=== PATIENT | male | born 1960 | race Caucasian/White ===

== ENCOUNTER 2016-09-26 12:11 | Outpatient (CLI) | payer OTHER ==
[~2016-09-26] VITALS: Ht 172.7 cm; Wt 112.7 kg
[2016-09-26 12:00] VITALS: BP 168/93; PULSE 62; RESP 18; Ht 172.7 cm; Wt 112.7 kg
[2016-09-26] MEDS ORDERED: DILT240T8 PO (12:22)
[2016-09-26] MEDS ORDERED: ISOS60TA PO (12:22)
[2016-09-26] MEDS ORDERED: APR50 PO (12:22)
[2016-09-26] MEDS ORDERED: FENO160T13 PO (12:22)
[2016-09-26] MEDS ORDERED: CHOL400T10 PO (12:22)
[2016-09-26] MEDS ORDERED: LISI20TA11 PO (12:22)
[2016-09-26] MEDS ORDERED: ASPI-664 PO (12:22)
[2016-09-26] MEDS ORDERED: METO100T13 PO (12:22)
[2016-09-26] MEDS ORDERED: METO50TA16 PO (12:22)
[2016-09-26] MEDS ORDERED: AMLO-147 PO (12:22)
--- NOTE | 2016-09-26 12:32 | PN ---
Date/Time of Note Date/Time of Note DATE: 09/26/16 TIME: 11:57 Outpatient Progress Note Chief Complaint Hypertension/ASHD/hyperlipidemia/ HPI Hypertension/patient's elevated blood pressure, no headache or dizziness, patient blood pressure this morning 168/93, patient was recently hospitalized with high blood pressure, and chest pain, no impaired vision, no nausea vomiting , no local focal weakness, no blood in the urine, ASHD/no chest pain, no PND orthopnea or ankle edema, patient was recently hospital is, patient does have history of PTCA stent LAD 10/04/2015 with [facility] Hyperlipidemia/no xanthoma, on medication, side effect of medication, Review of Systems Const: [No Fever, no chills, no Wt. loss, no Fatigue, normal appetite, no diaphoresis.] Eyes: [No pain, no discharge, no redness, no visual change, no foreign body.] ENT: [No pain, no bleeding, no congestion, no sore throat, no dysphagia, no discharge or rhinitis.] Lymph: [No adenopathy, no tender nodes, no lymphedema.] Resp: [No SOB, no cough, no sputum, no wheezing, no chest pain.] CV: [No chest pain, no palpitaions, no HAAS, no PND, no edema.] GI: [Normal appetite, no pain, no nausea, no vomiting, no diarrhea, no blood, no constipation.] : [No frequency, no urgency, no dysuria, no hematuria, no flank pain, no discharge, no bleeding.] Musc: [No bone/joint pain, no back pain, no neck pain, no knee pain, no restricted ROM.] Skin: [No rash, no skin lesions, no erythema, no laceration, no bruising, no pruritus.] Neuro: [No HERNANDES, no dizziness, no syncope, no seizure, no focal-weakness.] Endo: [No polyuria, no polydypsia, no dry-skin, no temp-intolerance.] Psych: [No hallucinations, no depression, no anxiety, no suicidal ideation.] Ext: [No edema, no pain, no ulcer, no weakness.] Physical Exam General Appearance: A [56] year-old [male [who appears well-developed, well- nourished, in no acute distress.] HEENT: [Head normocephalic, atraumatic. Pupils equal, round, reactive to light and accommodate. Sclerae are no jaundice. Nasal turbinates pink without erythema or nasal discharge. Mucous membranes pink and moist without lesions. Oropharynx clear without any exudate or discharge.] NECK: [Supple. Trachea midline, No thyromegaly, No cervical lymphadenopathy, No mass, No carotid bruits, No JVD, Carotid pulses 2+ bilaterally.] PULMONARY: [Clear to auscultaion bilaterally, No retractions, Chest expansion symmetric bilaterally, no rales, no ronchi, no dulness on percussion.] CARDIAC: [Normal SI and S2, Regular rate and rythm, no murmur, gallop, or rub.] GASTROINTESTINAL: [Abdomen is soft, non-tender, Non Rigid, No distention, Positive bowel sounds x4 quadrants, Liver normal.] SKIN: [Warm, dry, no rash, no bruise, no echmosis.] EXTREMITIES: [Bilateral lower extremities normal, no edema, no phlabitus, pulse palpable, no contracture.] MUSCULOSKELETAL: [Spine Normal, Non-tender, Normal range of motion, No swelling , no deformity, no clubbing, or cyanosis, the patient has no edema to bilateral lower extremities, dorsalis pedis pulses palpable bilaterally.] NEUROLOGIC: [The patient is awake, alert, oriented, responding to yes/no questions appropriately, moving all extremities, cranial nerve intact, normal strenght, normal power, normal coordination, normal gait.] PMH Allergy none, Past medical history/patient has multiple nonspecific complaint, patient has history of ASHD/[place]/hypertension/hyperlipidemia/ Left wrist surgery/vasectomy, Social Hx Patient used to smoke 2 packs per day, now patient is smoking 1 pack per day, Drinks socially, no drugs, Family Hx Patient mother had heart problem, recently , history of CHF and pacemaker with the mother, Assessment/Plan Impression Hypertension poorly controlled/ASHD/hyperlipidemia Plan Patient education done about all the above medical problem, patient blood pressure still not controlled, Will increase hydralazine to 50 mg 4 times a day, and will give prescription for one month supply, #120 Will also increase lisinopril 20 mg by mouth to the cerebral 40 mg by mouth daily, #30 Patient to check blood pressure on daily basis, and bring the record, or taking to the primary care physician, Patient education done if any chest pain to call us, or call primary physician, or go to the ER, Patient encouraged to follow with the primary care physician, DIMAS MATHIS MD Sep 26, 2016 12:07
== END 2016-09-26 16:57 | disposition home or self-care (01) ==
LOC: DCC 12:11
PROVIDERS: ATTEND Internal Medicine
DX: I10 Essential (primary) hypertension (principal); I25.10 Atherosclerotic heart disease of native coronary artery without angina pectoris; E78.5 Hyperlipidemia, unspecified

== ENCOUNTER 2016-10-14 11:35 | Outpatient (CLI) | payer OTHER ==
[~2016-10-14] VITALS: Ht 172.7 cm; Wt 108.6 kg
[~2016-10-14 11:35] MED LIST: AMLO-147 PO; ASPI-664 PO; CHOL400T10 PO; DILT240T8 PO; FENO160T13 PO; HYDR-3672 PO; ISOS60TA PO; LISI20TA11 PO; METO100T13 PO; METO50TA16 PO
[2016-10-14 11:40] VITALS: BP_SYST 202; BP_SYST 221; BP_DIAS 121; BP_DIAS 127; PULSE 76; RESP 18; Ht 172.7 cm; Wt 108.6 kg
--- NOTE | 2016-10-14 12:10 | PN ---
Date/Time of Note Date/Time of Note DATE: 10/14/16 TIME: 12:03 Outpatient Progress Note Chief Complaint Hypertension/ASHD/hyperlipidemia HPI Hypertension/patient denies any headache dizziness lightness, no local focal weakness, patient feels great, patient has not taken medication for 3 days, patient stated when he takes the medicine he does not feel normal and he has not taken it, ASHD/no chest pain, no PND orthopnea or ankle edema, Hyperlipidemia/no xanthoma, on medication, no side effect of medication, Review of Systems Const: No Fever, no chills, no Wt. loss, no Fatigue, normal appetite, no diaphoresis. Eyes: No pain, no discharge, no redness, no visual change, no foreign body. ENT: No pain, no bleeding, no congestion, no sore throat, no dysphagia, no discharge or rhinitis. Lymph: No adenopathy, no tender nodes, no lymphedema. Resp: No SOB, no cough, no sputum, no wheezing, no chest pain. CV: No chest pain, no palpitaions, no HAAS, no PND, no edema. GI: Normal appetite, no pain, no nausea, no vomiting, no diarrhea, no blood, no constipation. : No frequency, no urgency, no dysuria, no hematuria, no flank pain, no discharge, no bleeding. Musc: No bone/joint pain, no back pain, no neck pain, no knee pain, no restricted ROM. Skin: No rash, no skin lesions, no erythema, no laceration, no bruising, no pruritus. Neuro: No HERNANDES, no dizziness, no syncope, no seizure, no focal-weakness. Endo: No polyuria, no polydypsia, no dry-skin, no temp-intolerance. Psych: No hallucinations, no depression, no anxiety, no suicidal ideation. Ext: No edema, no pain, no ulcer, no weakness. Physical Exam Vital Signs Date Time Temp Pulse Resp B/P Pulse Ox O2 Delivery O2 Flow Rate FiO2 10/14/16 11:40 98.1 76 18 221/121 92 Room Air 202/127 General Appearance: A 56 year-old [male who appears well-developed, well- nourished, in no acute distress. HEENT: Head normocephalic, atraumatic. Pupils equal, round, reactive to light and accommodate. Sclerae are no jaundice. Nasal turbinates pink without erythema or nasal discharge. Mucous membranes pink and moist without lesions. Oropharynx clear without any exudate or discharge. NECK: Supple. Trachea midline, No thyromegaly, No cervical lymphadenopathy, No mass, No carotid bruits, No JVD, Carotid pulses 2+ bilaterally. PULMONARY: Clear to auscultaion bilaterally, No retractions, Chest expansion symmetric bilaterally, no rales, no ronchi, no dulness on percussion. CARDIAC: Normal SI and S2, Regular rate and rythm, no murmur, gallop, or rub. GASTROINTESTINAL: Abdomen is soft, non-tender, Non Rigid, No distention, Positive bowel sounds x4 quadrants, Liver normal. SKIN: Warm, dry, no rash, no bruise, no echmosis. EXTREMITIES: Bilateral lower extremities normal, no edema, no phlabitus, pulse palpable, no contracture. MUSCULOSKELETAL: Spine Normal, Non-tender, Normal range of motion, No swelling, no deformity, no clubbing, or cyanosis, the patient has no edema to bilateral lower extremities, dorsalis pedis pulses palpable bilaterally. NEUROLOGIC: The patient is awake, alert, oriented, responding to yes/no questions appropriately, moving all extremities, cranial nerve intact, normal strenght, normal power, normal coordination, normal gait. Allergies Coded Allergies: No Known Drug Allergies (Verified Allergy, Unknown, 09/26/16) PMH No change Social Hx No change Family Hx No change Assessment/Plan Impression Hypertension poorly controlled/ASHD/hyperlipidemia/noncompliance Plan Patient education done again about a blood patient told that patient is very close to the stroke or heart attack or sudden , if he does not take his blood pressure medication, patient has a blood pressure medication, and also has blood pressure cuff, Patient was asked to go home and take medication right away, and take the blood pressure to 3 times a day today and call us, patient also supposed to call us tomorrow with a blood pressure, If the blood pressure does not come down patient advised to go to the emergency room, Patient explained that noncompliance will cause , patient understands it, Patient encouraged to follow with the primary care physician, Medications Home Meds Reported Medications Lisinopril* (Lisinopril*) 20 Mg Tablet, 20 MG PO DAILY, #30 TAB 3/16/17 Isosorbide Mononitrate* (Isosorbide Mononitrate*) 60 Mg Tab.er.24h, 60 MG PO DAILY, TAB 09/26/16 Hydralazine Hcl* (Hydralazine Hcl*) 50 Mg Tab, 50 MG PO Q8, #90 TAB 09/26/16 Fenofibrate, Micronized* (Fenofibrate*) 160 Mg Tablet, 160 MG PO DAILY, TAB 09/26/16 Cholecalciferol* (Vitamin D*) 400 Unit Tablet, 80132 UNIT PO weekly, TAB 09/26/16 Diltiazem HCl (Diltiazem ER) 240 Mg Tab.er.24h, 240 MG PO DAILY, #30 TAB 09/26/16 Aspirin (Low Dose Aspirin) 81 Mg Tablet.dr, 81 MG PO DAILY, #30 TAB 09/26/16 Amlodipine Besylate* (Amlodipine Besylate*) 10 Mg Tablet, 10 MG PO DAILY, #30 TAB 09/26/16 Metoprolol Succinate* (Toprol XL*) 100 Mg Tab.sr.24h, 100 MG PO BID, #30 TAB 09/26/16 Metoprolol Succinate* (Toprol XL*) 50 Mg Tab.er.24h, 50 MG PO BID, #30 TAB 09/26/16 DIMAS MATIHS MD Oct 14, 2016 12:10
== END 2016-10-14 17:00 | disposition home or self-care (01) ==
LOC: DCC 11:35
PROVIDERS: ATTEND Internal Medicine
DX: I10 Essential (primary) hypertension (principal); I25.10 Atherosclerotic heart disease of native coronary artery without angina pectoris; E78.5 Hyperlipidemia, unspecified; Z91.19 Patient's noncompliance with other medical treatment and regimen